=== PATIENT | female | born 1985 | race Caucasian/White ===

== ENCOUNTER 2016-09-16 11:20 | Emergency (ER) | payer OTHER ==
[~2016-09-16 11:20] MED LIST: AMBIEN PO; DILANTIN PO; FOLIC ACID PO; LAMICTAL PO; NAPROSYN500 MG PO; PHENERGAN PO; PRENATAL MULTIV1 TA1 PO; SEIZURE MEDICATION; STOOL SOFT PO; SYNTHROID PO; TOPAMAX PO
[2016-09-16 12:09] LABS: URINE APPEARANCE CLEAR; URINE BILIRUBIN NEG (NEG); URINE BLOOD NEG (NEG); URINE COLOR YELLOW; URINE GLUCOSE NEG (NORM); URINE KETONE NEG (NEG); URINE LEUKOCYTE ESTERASE NEG (NEG); URINE NITRATE NEG (NEG); URINE PH 5.5 (5-8); URINE PROTEIN NEG (NEG); URINE SPECIFIC GRAVITY <=1.005 (1.003-1.035); URINE UROBILINOGEN 0.2 MG/DL (NORM)
[2016-09-16 12:10] LABS: MICRO INDICATED? NO; URINE SOURCE CLEAN CATCH
[2016-09-16 12:20] LABS: AMPHETAMINE NEG (NEG); BARBITURATES NEG (NEG); BENZODIAZEPINES NEG (NEG); COCAINE NEG (NEG); MARIJUANA POS (NEG); OPIATES NEG (NEG); TRICYCLIC ANTIDEPRESSANTS NEG (NEG); U METHADONE NEG (NEG)
== END 2016-09-16 12:43 | disposition home or self-care (01) ==
LOC: SED 11:20
PROVIDERS: Nurse Practitioner Family
DX: R56.9 Unspecified convulsions (principal); R51 Headache; F12.10 Cannabis abuse, uncomplicated; F17.210 Nicotine dependence, cigarettes, uncomplicated; Z98.890 Other specified postprocedural states; Z88.8 Allergy status to other drugs, medicaments and biological substances
CPT/HCPCS: 80307; 81003; 82947; 84703; 99284